=== PATIENT | female | born 1965 | race African-American/Black ===

== ENCOUNTER 2018-05-04 03:21 | Outpatient (CLI) | payer SELFPAY ==
[2018-05-05 15:24] LABS: APPEARANCE,URINE TURBID (CLEAR); BILIRUBIN,URINE NEGATIVE (NEGATIVE); BLOOD, URINE NEGATIVE Ery/uL (NEGATIVE); COLOR,URINE YELLOW (YELLOW); KETONES,URINE NEGATIVE (NEGATIVE); LEUKOCYTE ESTERASE ,URINE NEGATIVE (NEGATIVE); NITRITE, URINE NEGATIVE (NEGATIVE); PH,URINE 5.5 (5.0-8.0); PROTEIN,URINE TRACE mg/dl (NEGATIVE); UGLUCOSE NEGATIVE (NEGATIVE); UROBILINOGEN,URINE 0.2 EU/dL (0.2)
[2018-05-05 15:35] LABS: BACTERIA,URINE None seen /HPF (None Seen); RBC,URINE 1 /HPF (0-2); SQUAMOUS EPITHELIAL CELL,UR None Seen /HPF (None Seen); WBC,URINE 0-2 /HPF (0-3)
== END 2018-05-04 05:12 | disposition home or self-care (01) ==
LOC: NM 03:21
PROVIDERS: ATTEND Family Medicine
DX: R07.9 Chest pain, unspecified (principal); R07.89 Other chest pain
CPT/HCPCS: 36415; 81000-TC

== ENCOUNTER 2019-07-14 03:41 | Outpatient (CLI) | payer SELFPAY ==
[2019-07-14 05:23] LABS: BASOPHILS % (AUTO) 0.1 % (0.0-2.0); HEMATOCRIT 44 % (33-45); HEMOGLOBIN 14.8 g/dL (11.5-14.8); LYMPHOCYTES # (AUTO) 1.6 /CMM (0.8-4.8); LYMPHOCYTES % (AUTO) 6.3 % (20.0-44.0); MEAN CORPUSCULAR HGB CONC 34 g/dl (31.0-36.0); MEAN CORPUSCULAR VOLUME 85 fL (82-100); MONOCYTES # (AUTO) 2.7 /CMM (0.1-1.30); MONOCYTES % (AUTO) 10.6 % (2.0-12.0); NEUTROPHILS # (AUTO) 20.8 /CMM (1.8-8.9); PLATELET COUNT (AUTO) 268 /CMM (150-450); RED BLOOD CELL COUNT(AUTO) 5.14 MIL/uL (4.0-5.2); WHITE BLOOD COUNT (AUTO) 25.1 K/uL (4.3-11.0)
[2019-07-14 05:41] LABS: APPEARANCE,URINE SL CLOUDY (CLEAR); BILIRUBIN,URINE NEGATIVE (NEGATIVE); BLOOD, URINE NEGATIVE Ery/uL (NEGATIVE); COLOR,URINE DARK YELLO (YELLOW); KETONES,URINE NEGATIVE (NEGATIVE); LEUKOCYTE ESTERASE ,URINE NEGATIVE (NEGATIVE); NITRITE, URINE NEGATIVE (NEGATIVE); PROTEIN,URINE TRACE mg/dl (NEGATIVE); UGLUCOSE NEGATIVE (NEGATIVE); UROBILINOGEN,URINE 0.2 EU/dL (0.2)
== END 2019-07-14 08:58 | disposition home or self-care (01) ==
LOC: LAB 03:41
PROVIDERS: ATTEND Internal Medicine Infectious Disease
DX: Z75.3 Unavailability and inaccessibility of health-care facilities (principal)
CPT/HCPCS: 36415; 42809; 81000-TC; 84132-TC; 85025-TC; 85610-TC; 86850-TC; 86921-TC; P9016-BL